=== PATIENT | female | born 1990 | race Caucasian/White ===

== ENCOUNTER 2016-10-22 12:57 | Observation (INO) | payer BC, OTHER ==
[~2016-10-22] VITALS: Ht 167.6 cm; Wt 110.7 kg
[2016-10-22 14:05] LABS: HEMOGLOBIN 13.5 gm/dl (12.3-15.3); RED BLOOD COUNT 5.11 M/UL (4.00-5.10); WHITE BLOOD COUNT 10.3 K/UL (4.5-11.0)
[2016-10-22 15:45] LABS: BUN/CREATININE RATIO 10 (0-10)
[2016-10-23 03:11] LABS: WHITE BLOOD COUNT 7.9 K/UL (4.5-11.0)
[2016-10-23 03:20] LABS: HEMOGLOBIN 11.2 gm/dl (12.3-15.3); RED BLOOD COUNT 4.28 M/UL (4.00-5.10)
[2016-10-23 03:27] LABS: BUN/CREATININE RATIO 6 (0-10)
== END 2016-10-23 10:48 | disposition home or self-care (01) ==
LOC: ER1 12:57 → ZEROF 17:55 → OB 10-23 00:57
PROVIDERS: Physician Assistant; ADMIT Obstetrics & Gynecology
DX: O21.0 Mild hyperemesis gravidarum (principal); E86.0 Dehydration; Z3A.08 8 weeks gestation of pregnancy
CPT/HCPCS: 36415; 80053; 81001; 85025; 87086; 96361; 96365; 96367; 96375; 99284; C9113; G0378; J2550; J7030; J7050; J7120